=== PATIENT | female | born 1965 | race African-American/Black ===

== ENCOUNTER 2018-05-18 08:58 | Emergency (ER) | payer OTHER ==
[2018-05-18] MEDS ORDERED: methylPREDNISolone 125 MG* 2 ML VIAL IM ONE (09:53)
[2018-05-18] MEDS ORDERED: hydrOXYzine HCL TAB* 25 MG PO ONE (10:07)
[2018-05-18 11:27] VITALS: BP 151/96
--- NOTE | 2018-05-19 06:26 | ED ---
Skin Complaint - HPI Summary HPI Summary: Patient is a 53-year-old female presenting to the ED with diffuse papular rash. She states she was sleeping on the couch of a friend when she noticed them in the morning. She endorses pruritus. The diffuse rash is non-erythematous with very small papules which are not pustular or vesicular nature. She states she has had this before and has been seen by hi ranger operator with a biopsy which was inconclusive. She states that was several years ago and has not had a recurrent episode since today. She states last time however the rash occurred on her bilateral arms and thighs and this rash is occurring all over her body. She appears in no acute distress. She does not recall any tick bites, bug bites. Denies any fevers, sweats, chills. States she is otherwise at her baseline. - History of Current Complaint Chief Complaint: EDRashSkinAbscess Time Seen by Provider: 05/18/18 09:11 Stated Complaint: RASH Hx Obtained From: Patient Onset/Duration: Started Hours Ago Skin Exposure Onset/Duration: Hours Ago Timing: Constant Onset Severity: Mild Current Severity: Mild Pain Intensity: 0 Pain Scale Used: 0-10 Numeric Skin Location: Diffuse Aggravating Symptom(s): Nothing Alleviating Symptom(s): Nothing - Allergy/Home Medications Allergies/Adverse Reactions: Allergies Allergy/AdvReac Type Severity Reaction Status Date / Time Penicillins Allergy Rash Verified 05/18/18 09:04 PMH/Surg Hx/FS Hx/Imm Hx Previously Healthy: Yes - Immunization History Hx Pertussis Vaccination: No Immunizations Up to Date: Yes Infectious Disease History: No Infectious Disease History: Denies: Traveled Outside the [place] in Last 30 Days - Social History Occupation: Employed Full-time Lives: With Family Alcohol Use: Occasionally Hx Substance Use: No Substance Use Type: Reports: None Hx Tobacco Use: No Smoking Status (MU): Never Smoked Tobacco Review of Systems Constitutional: Negative Negative: Fever, Chills, Fatigue, Skin Diaphoresis Negative: Palpitations, Chest Pain Negative: Shortness Of Breath, Cough Genitourinary: Negative Positive: no symptoms reported, see HPI Negative: Arthralgia, Myalgia Positive: Other - diffuse papular rash Neurological: Negative All Other Systems Reviewed And Are Negative: Yes Physical Exam Triage Information Reviewed: Yes Vital Signs On Initial Exam: Initial Vitals Temp Pulse Resp BP Pulse Ox 98.7 F 77 16 157/101 97 05/18/18 09:00 05/18/18 09:00 05/18/18 09:00 05/18/18 09:00 05/18/18 09:00 Vital Signs Reviewed: Yes Appearance: Positive: Well-Appearing, Well-Nourished Skin: Positive: Warm, Skin Color Reflects Adequate Perfusion, Other - papular rash - diffuse non erythematous - papular Head/Face: Positive: Normal Head/Face Inspection Eyes: Positive: EOMI, ARNAUD, Conjunctiva Clear Neck: Positive: Supple, No Lymphadenopathy Respiratory/Lung Sounds: Positive: Clear to Auscultation, Breath Sounds Present Cardiovascular: Positive: RRR, Pulses are Symmetrical in both Upper and Lower Extremities Musculoskeletal: Positive: Normal, Strength/ROM Intact Neurological: Positive: Speech Normal Psychiatric: Positive: Normal, Affect/Mood Appropriate AVPU Assessment: Alert Diagnostics - Vital Signs Vital Signs Temp Pulse Resp BP Pulse Ox 05/18/18 11:26 98.1 F 67 16 151/96 97 05/18/18 09:00 98.7 F 77 16 157/101 97 - Laboratory Lab Results: Lab Results 05/18/18 Range/Units 10:13 Group A Strep Rapid Negative (Negative) Lab Statement: Any lab studies that have been ordered have been reviewed, and results considered in the medical decision making process. Course/Dx - Course Course Of Treatment: During the course of treatment, the patient is evaluated for diffuse papular rash. The rash appears to resemble keratosis pilaris. The rash is non-erythematous with no drainage. No signs of cellulitis or other infections. No obvious signs of a factor of infection such as a bug bite. She is treated with triamcinolone, a short course of prednisone and hydroxyzine for itching. Strep negative. - Diagnoses Provider Diagnoses: Papular rash Discharge - Sign-Out/Discharge Documenting (check all that apply): Patient Departure - Discharge Plan Condition: Stable Disposition: HOME Prescriptions: hydrOXYzine HCL TAB* [Atarax 25 MG TAB*] 25 mg PO TID PRN #12 tab PRN Reason: Itching predniSONE TAB* [Deltasone TAB*] 50 mg PO DAILY #4 tab MDD 1 Triamcinolone 0.1% CREAM (NF) [Kenalog 0.1% Cream (NF)] 1 applic TOPICAL BID #1 applic Patient Education Materials: Acute Rash (ED) Referrals: No Primary Care Phys,NOPCP [Primary Care Provider] - Additional Instructions: Hydroxyzine up to 3 times daily for itching Benadryl 50 mg at bedtime Prednisone once daily in the morning 4 days Do not take this medication at night as it is a stimulant Triamcinolone cream may be applied to areas of discomfort up to twice daily Do not use triamcinolone cream on the face You may use hydrocortisone cream 1% on the face - Billing Disposition and Condition Condition: STABLE Disposition: Home
== END 2018-05-18 11:26 | disposition home or self-care (01) ==
LOC: ED 08:58
DX: R21 Rash and other nonspecific skin eruption (principal); Z88.0 Allergy status to penicillin
CPT/HCPCS: 87651; 96372; 99282; A9270-GY; J2930